=== PATIENT | female | born 1945 | race Caucasian/White ===

== ENCOUNTER → 2016-12-29 | Outpatient (CLI) | payer MEDICARE, OTHER ==
[~2016-12-29] MED LIST: ACTOS30 MG PO; ALPHAGAN 10 ML10 ML OP; ASPIR-LOW81 MG PO; ATORVASTATIN; BACTRIM DS 8001 TAB PO; GLIPIZIDE XL5 MG PO; HCTZ 25MG25 MG PO; JANUMET 1000 MG1 TAB; PRILOSEC; TOPROL XL100 MG PO; VITAMIN B-1000 MCG/T PO; ZOCOR80 MG PO
== END ==
LOC: MC.RAD 14:15
DX: Z12.31 Encounter for screening mammogram for malignant neoplasm of breast (principal)

== ENCOUNTER → 2018-01-12 | Outpatient (CLI) | payer MEDICARE, OTHER | LOC: MC.RAD 10:11 | DX: Z12.31 Encounter for screening mammogram for malignant neoplasm of breast (principal) ==

== ENCOUNTER → 2018-01-20 | Outpatient (CLI) | payer MEDICARE, OTHER | LOC: MC.RAD 12:44 | DX: N63.10 Unspecified lump in the right breast, unspecified quadrant (principal) ==

== ENCOUNTER → 2018-08-02 | Outpatient (CLI) | payer MEDICARE, OTHER | LOC: MC.RAD 09:00 | DX: N63.10 Unspecified lump in the right breast, unspecified quadrant (principal) | CPT/HCPCS: G0279 ==

== ENCOUNTER → 2018-09-22 | Outpatient (CLI) | payer MEDICARE, OTHER | LOC: SUN.DIA 13:22 | DX: E11.9 Type 2 diabetes mellitus without complications (principal); E78.5 Hyperlipidemia, unspecified; I10 Essential (primary) hypertension; E66.9 Obesity, unspecified | CPT/HCPCS: G0108 ==

== ENCOUNTER → 2018-10-06 | Outpatient (CLI) | payer MEDICARE, OTHER | LOC: SUN.DIA 11:46 | DX: E11.9 Type 2 diabetes mellitus without complications (principal); E78.5 Hyperlipidemia, unspecified; I10 Essential (primary) hypertension; E66.9 Obesity, unspecified ==

== ENCOUNTER → 2018-10-13 | Outpatient (CLI) | payer MEDICARE, OTHER | LOC: SUN.DIA 14:58 | DX: E11.9 Type 2 diabetes mellitus without complications (principal); E78.5 Hyperlipidemia, unspecified; I10 Essential (primary) hypertension; E66.9 Obesity, unspecified | CPT/HCPCS: G0109 ==

== ENCOUNTER → 2018-10-20 | Outpatient (CLI) | payer MEDICARE, OTHER | LOC: SUN.DIA 13:54 | DX: E11.9 Type 2 diabetes mellitus without complications (principal); E78.5 Hyperlipidemia, unspecified; I10 Essential (primary) hypertension; E66.9 Obesity, unspecified | CPT/HCPCS: G0109 ==

== ENCOUNTER → 2018-10-27 | Outpatient (CLI) | payer MEDICARE, OTHER | LOC: SUN.DIA 15:49 | DX: E11.9 Type 2 diabetes mellitus without complications (principal); E78.5 Hyperlipidemia, unspecified; I10 Essential (primary) hypertension; E66.9 Obesity, unspecified | CPT/HCPCS: G0109 ==

== ENCOUNTER → 2018-11-10 | Outpatient (CLI) | payer MEDICARE, OTHER | LOC: SUN.DIA 11-03 14:46 | DX: E11.9 Type 2 diabetes mellitus without complications (principal); E78.5 Hyperlipidemia, unspecified; I10 Essential (primary) hypertension; E66.9 Obesity, unspecified ==

== ENCOUNTER → 2018-12-08 | Outpatient (CLI) | payer MEDICARE, OTHER | LOC: SUN.DIA 11:11 → DIA.ED 18:00 | DX: E11.9 Type 2 diabetes mellitus without complications (principal); E78.5 Hyperlipidemia, unspecified; I10 Essential (primary) hypertension; E66.9 Obesity, unspecified | CPT/HCPCS: G0109 ==

== ENCOUNTER → 2018-12-22 | Outpatient (CLI) | payer MEDICARE, OTHER | LOC: DIA.ED 12:50 | DX: E11.9 Type 2 diabetes mellitus without complications (principal); E78.5 Hyperlipidemia, unspecified; I10 Essential (primary) hypertension; E66.9 Obesity, unspecified ==

== ENCOUNTER → 2019-02-07 | Outpatient (CLI) | payer MEDICARE, OTHER | LOC: MC.RAD 12:51 | DX: N64.89 Other specified disorders of breast (principal) | CPT/HCPCS: G0279 ==

== ENCOUNTER → 2019-03-30 | Outpatient (CLI) | payer MEDICARE, OTHER | LOC: DIA.ED 13:25 | DX: E11.9 Type 2 diabetes mellitus without complications (principal); E78.5 Hyperlipidemia, unspecified; I10 Essential (primary) hypertension; E66.9 Obesity, unspecified ==

== ENCOUNTER → 2020-02-29 | Outpatient (CLI) | payer MEDICARE, OTHER | LOC: MC.RAD 12:50 | DX: Z12.31 Encounter for screening mammogram for malignant neoplasm of breast (principal) ==

== ENCOUNTER → 2021-05-06 | Outpatient (CLI) | payer MEDICARE, OTHER | LOC: MC.RAD 10:25 | DX: Z12.31 Encounter for screening mammogram for malignant neoplasm of breast (principal) ==

== ENCOUNTER → 2023-07-07 | Outpatient (CLI) | payer MEDICARE, OTHER | LOC: MC.RAD 16:16 | DX: Z12.31 Encounter for screening mammogram for malignant neoplasm of breast (principal) ==